=== PATIENT | male | born 1960 | race Caucasian/White ===

== ENCOUNTER → 2018-08-20 07:18 | Outpatient (CLI) | payer OTHER ==
[2018-08-20 08:45] LABS: APTT 26.3 SECONDS (22.8-39.4); INR 1.03 (0.85-1.17)
[2018-08-20 08:51] LABS: ALBUMIN 4.2 g/dL (3.4-5.0); BILIRUBIN - DIRECT 0.09 mg/dL (0.00-0.30); BILIRUBIN - INDIRECT 0.35 mg/dL (0.00-1.00); BILIRUBIN - TOTAL 0.44 mg/dL (0.2-1.3); PROTEIN - SERUM 7.6 g/dL (6.4-8.2)
[2018-08-20 08:57] LABS: % SATURATION 25 % (15-55); IRON 70 ug/dl (35-150); TOTAL IRON BIND CAPACITY 275 ug/dl (260-445); UNSAT IRON BIND CAPACITY 205 ug/dl (150-375)
[2018-08-23 12:09] LABS: ANA REFLEX - ANTICHROMATIN ABS <0.2 AI (0.0-0.9); ANA REFLEX - CENTROMERE B ABS <0.2 AI (0.0-0.9); ANA REFLEX - DBL STRANDED DNA 11 IU/mL (0-9); ANA REFLEX - DIRECT Positive (Negative); ANA REFLEX - JO-1 AB <0.2 AI (0.0-0.9); ANA REFLEX - RNP ANTIBODIES <0.2 AI (0.0-0.9); ANA REFLEX - SCL-70 <0.2 AI (0.0-0.9); ANA REFLEX - SJOGRENS AB SSA <0.2 AI (0.0-0.9); ANA REFLEX - SJOGRENS AB SSB <0.2 AI (0.0-0.9); ANA REFLEX - SMITH AB <0.2 AI (0.0-0.9)
[2018-08-23 13:12] LABS: MITOCHONDRIAL ANTIBODY <20.0 Units (0.0-20.0)
[2018-08-23 14:09] LABS: SMOOTH MUSCLE ABS (ACTIN) 7 Units (0-19)
== END | disposition home or self-care (01) ==
LOC: D.US 07:18
PROVIDERS: ATTEND Internal Medicine Gastroenterology
DX: R74.8 Abnormal levels of other serum enzymes (principal)

== ENCOUNTER → 2018-09-28 10:46 | Outpatient (CLI) | payer OTHER ==
[2018-09-28 11:42] LABS: BILIRUBIN - DIRECT 0.08 mg/dL (0.00-0.30); BILIRUBIN - INDIRECT 0.28 mg/dL (0.00-1.00); BILIRUBIN - TOTAL 0.36 mg/dL (0.2-1.3); PROTEIN - SERUM 7.3 g/dL (6.4-8.2)
== END | disposition home or self-care (01) ==
LOC: D.LAB 10:46
PROVIDERS: ATTEND Internal Medicine Gastroenterology
DX: R94.5 Abnormal results of liver function studies (principal)